=== PATIENT | male | born 2000 | race Caucasian/White ===

== ENCOUNTER 2023-09-27 17:20 | Emergency (ER) | payer MEDICAID ==
[2023-09-27] MEDS: Proparacaine 0.5% Ophth Soln 15 ML Bottle EYEBOTH STA (18:21)
[2023-09-27] MEDS: Diphtheria,Pertussis(Acell),Tetanus Vaccine 0.5 ML Syringe IM ONE (18:44)
== END 2023-09-27 18:59 | disposition home or self-care (01) ==
LOC: JP.ED 17:20
DX: T15.91XA Foreign body on external eye, part unspecified, right eye, initial encounter (principal); H16.001 Unspecified corneal ulcer, right eye; Z23 Encounter for immunization; W45.8XXA Other foreign body or object entering through skin, initial encounter
CPT/HCPCS: 65220; 90471; 90715; 99283; A9270

== ENCOUNTER 2024-08-11 07:14 | Emergency (ER) | payer SELFPAY ==
[2024-08-11] MEDS: Acetaminophen 325 MG Tab PO ONE (07:56)
[2024-08-11] MEDS: Ondansetron 4 MG Tab.DIS PO ONE (07:56)
[2024-08-11] MEDS: Alum Hydrox/Mag Hydrox/Simeth 15 ML, Lidocaine 2% 15 ML PO ONE (07:56)
== END 2024-08-11 08:50 | disposition home or self-care (01) ==
LOC: JP.ED 07:14
DX: R11.10 Vomiting, unspecified (principal); F17.200 Nicotine dependence, unspecified, uncomplicated; Z86.16 Personal history of COVID-19
CPT/HCPCS: 99284; A9270; Q0162; 99282